=== PATIENT | female | born 1965 | race Caucasian/White ===

== ENCOUNTER 2017-05-07 11:37 | Inpatient (IN) ==
--- NOTE | 2017-05-06 21:31 | Discharge Summary ---
<Sola Sepulveda Prasanth - Last Filed: 05/06/17 21:27> Date of Encounter: 05/06/17 - Discharge Diagnosis (1) Arthritis of right hip Priority: Primary Status: Acute (2) Status post total hip replacement, right Priority: Primary Status: Acute (3) DMII (diabetes mellitus, type 2) Priority: Secondary Status: Chronic Qualifiers: Diabetes mellitus complication status: without complication Diabetes mellitus shelter insulin use: unspecified intermediate card tender insulin use status Qualified Code(s): E11.9 - Type 2 diabetes mellitus without complications (4) Obesity Priority: Secondary Status: Chronic Qualifiers: Obesity type: due to excess calories Obesity classification: unspecified obesity classification Serious obesity comorbidity presence: unspecified whether serious comorbidity present Qualified Code(s): E66.09 - Other obesity due to excess calories; Z68.41 - Body mass index (BMI) 40.0-44.9, adult; Z68.41 - Body mass index (BMI) 40.0-44.9, adult; Z68.41 - Body mass index (BMI) 40.0- 44.9, adult; Z68.41 - Body mass index (BMI) 40.0-44.9, adult - Discharge Medications Home Medications: Aspirin Enteric Coated [Aspirin EC] 325 mg PO DAILY #21 tablet.dr 05/06/17 [Rx] OxyCODONE Immed Rel [Roxicodone 5 MG] 5 mg PO Q6HR PRN #28 tablet 05/06/17 [Rx] Dulaglutide [Trulicity] 1.5 mg SQ MO 05/07/17 [History] Glimepiride [Amaryl] 4 mg PO DAILY 05/07/17 [History] Levothyroxine [Synthroid] 50 mcg PO 0630 05/07/17 [History] Metformin HCl [Metformin HCl ER] 1,500 mg PO DAILY 05/07/17 [History] Allergies/Adverse Reactions: 3 Allergy/AdvReac Type Severity Reaction Status Date / Time No Known Allergies Allergy Verified 05/07/17 13:10 Primary care physician: Lea Scott - Patient Status Disposition: Home Health Service Condition: Good - Discharge Instructions Follow Up With: Lea Scott CNP [Primary Care Provider] - 10/04/17 3:30 pm Hugo Pierre MD [Partnered Physician] - 06/06/17 5:35 pm Sola Sepulveda, PAC [Physician Building Associate] - 05/17/17 9:15 am - Hospital Course Hospital course: Ms. Noel is a 52 year old female - Time Spent with Patient Total time spent providing and/or coordinating discharge services: <IgnacioHugo - Last Filed: 05/09/17 09:12> Date of Encounter: 05/09/17 Time of Encounter: 09:11 - Discharge Diagnosis (1) Arthritis of right hip Priority: Primary Status: Chronic (2) Status post total hip replacement, right Priority: Primary Status: Acute (3) DMII (diabetes mellitus, type 2) Priority: Secondary Status: Chronic Qualifiers: Diabetes mellitus complication status: without complication Diabetes mellitus shelter insulin use: unspecified shelter insulin use status Qualified Code(s): E11.9 - Type 2 diabetes mellitus without complications (4) Obesity Priority: Secondary Status: Chronic Qualifiers: Obesity type: due to excess calories Obesity classification: adult class 3 (BMI >= 40) Serious obesity comorbidity presence: unspecified whether serious comorbidity present Body mass index: BMI 40.0-44.9 Qualified Code(s): E66.09 - Other obesity due to excess calories; Z68.41 - Body mass index (BMI) 40.0-44.9, adult; Z68.41 - Body mass index (BMI) 40.0-44.9, adult; Z68.41 - Body mass index (BMI) 40.0-44.9, adult; Z68.41 - Body mass index (BMI) 40.0-44.9 , adult Primary care physician: Lea Scott - Patient Status Functional capacity at discharge: uses cane/walker Overall status at discharge: patient is progressing back to baseline - Hospital Course Hospital course: Ms. Noel is a 52 year old female Status post right total hip replacement The patient had an uneventful postoperative course. They received antibiotics and physical therapy and were discharged in stable condition. There will follow -up in the office in 2 weeks. - Time Spent with Patient Total time spent providing and/or coordinating discharge services:
--- NOTE | 2017-05-07 12:07 | Anesthesia Evaluation PreOp ---
Date of Encounter: 05/07/17 Time of Encounter: 12:05 - Past History Planned Operation: right GEMMA Cardiac History: Denies any Significant Hx Pulmonary History: Denies Any Significant HX SCIENTIFIC INFORMATICS ANALYST History: Denies Any Significant HX Other Medical History: Diabetes Type II, Thyroid (hypo), Other (obesity) Anesthesia History: Past Anesthesia (left ankle sx, JOBY, mariusz, breast bx), Problems (PONV, will use Scop. patch) Alcohol Use: none Drug use: none Medications and Allergies Aspirin Enteric Coated [Aspirin EC] 325 mg PO DAILY #21 tablet.dr 05/06/17 [Rx] OxyCODONE Immed Rel [Roxicodone 5 MG] 5 mg PO Q6HR PRN #28 tablet 05/06/17 [Rx] 3 Allergy/AdvReac Type Severity Reaction Status Date / Time anesthesia AdvReac Nausea Uncoded 05/01/17 08:49 - Meds/Allergy Pre-op Review Medications Reviewed: Yes Allergies Reviewed: Yes Beta Blockers on Current Med List: No Anesthesia Results - Imaging EKG: report reviewed (SINUS RHYTHM LOW QRS VOLTAGE IN PRECORDIAL LEADS PATTERN CONSISTENT WITH PULMONARY DISEASE) Anesthesia Exam - HEENT Pupil (Motor): EOMI Mallampati: III Teeth: Normal Oral Opening: Greater than 3 - SCIENTIFIC INFORMATICS ANALYST LOC: Oriented SCIENTIFIC INFORMATICS ANALYST Motor: Normal RUE, Normal LUE, Normal RLE, Normal LLE, Normal Face SCIENTIFIC INFORMATICS ANALYST Sensory: Normal: RUE, LUE, RLE, LLE, Face - Cardiac Rhythm: Regular Murmur: None - Pulmonary Breath Sounds: bilateral Clear Respiratory Effort: Symmetrical Anesthesia Assess/Plan ASA Score: 3 Modified Alton Scale for Level of Consciousness: Cooperative, oriented, and tranquil Anesthetic Plan: General Monitoring Plan: Standard Monitors Recovery Plan: PACU (discussed GA with block, agrees to proceed)
[2017-05-07] MEDS ORDERED: Scopolamine Patch 1.5 MG PATCH.TD72 TD ONE (12:16)
[2017-05-07] MEDS ORDERED: Lidocaine -MPF 2% 2 ML VIAL ONE (12:23)
[2017-05-07] MEDS ORDERED: Ondansetron 4 MG/2 ML VIAL ONE (12:23)
[2017-05-07] MEDS ORDERED: *HR* Rocuronium Bromide 50 MG/5 ML VIAL ONE (12:23)
[2017-05-07] MEDS ORDERED: Ketorolac 30 MG/ML VIAL ONE (12:23)
[2017-05-07] MEDS ORDERED: *HR* Midazolam HCl 2 MG/2 ML VIAL ONE (12:24)
[2017-05-07] MEDS ORDERED: *HR* Propofol 200 MG/20 ML VIAL IVP ONE ×2 (12:24→14:39)
[2017-05-07] MEDS ORDERED: *HR* FentaNYL (PF) 100 MCG/2 ML VIAL ONE ×2 (12:24→14:20)
[2017-05-07] MEDS ORDERED: CeFAZolin Syr 2,000MG/20 ML 2,000 MG/20 ML SYRINGE IVPB ONE (12:26)
[2017-05-07] MEDS ORDERED: *HR* Succinylcholine 200 MG/10 ML VIAL IVP ONE (12:28)
[2017-05-07] MEDS: Ringers Solution, Lactated 1,000 ML IVC SCH ×3 (12:44→17:51)
--- NOTE | 2017-05-07 12:52 | History & Physical Report ---
Date of Encounter: 05/07/17 Time of Encounter: 12:52 24 Hour HP Update - Instructions Instructions: If the History and Physical is less than 30 days old and was completed prior to A.M. admission and or procedure and has NOT been updated on calendar day of procedure please complete this update prior to performing procedure. - Update Patient reports changes in Medical Condition: No Changes in examination, assessment, or condition: No Changes in Medication: No Preop tests/diagnostics Reviewed: Yes Surgery Remains Indicated: Yes Consent for Planned Operative Procedure(s) Verified: Yes - Pre-Operative Checklist Preoperative Checklist Indicated: No Prophylactic Antibiotic Ordered: Yes Is VTE Prophylaxis Indicated?: Yes
[2017-05-07] MEDS ORDERED: Bupivacaine/Clonidine Syringe 1 EACH SYRINGE ONE (13:20)
[2017-05-07] MEDS ORDERED: ROPIVACAINE HCL/PF 0.5% 30 ML VIAL ONE (13:24)
[2017-05-07] MEDS ORDERED: *HR* Midazolam HCl 5 MG/5 ML VIAL IVP ONE (13:25)
[2017-05-07] MEDS ORDERED: Ethanol\\Acetic Acid\\Na Ace\\Ben 1,000 ML IRRIG.SOLN IR ONE (13:52)
[2017-05-07] MEDS ORDERED: Ondansetron 4 MG/2 ML VIAL IVP ONE (13:55)
[2017-05-07] MEDS ORDERED: *HR* Labetalol 20 MG/4 ML SYRINGE IVP PRN (13:55)
--- NOTE | 2017-05-07 14:00 | Anesthesia Procedures ---
Date of Encounter: 05/07/17 Time of Encounter: 13:49 Procedures: Anesthesia - Nerve Block Procedure Date: 05/07/17 Time: 13:49 Surgical Procedure: right total hip Checklist: Correct Patient Identifier, Correct procedure, History checked Correct side: Right Blood Thinner: No Monitor Applied: BP, Pulse Oximetry Sedation: Versed (mg): 5 Indication: Post Op Analgesia Block Type: Other (facia iliac) Catheter placed: No Sterile Technique: Yes Ultrasound used: Yes Anatomy identified: Yes Visual spread of Local: Yes Neuro Stimulation: No Blood on Needle Aspiration: No Smooth Injection of Local: Yes Pain with Injection of Local: No Prep: Chlorhexadine Local: 0.25% Bupivicaine w/Clonidine 20 mcg/cc (40ml), Ropivacaine (30ml 0.25% rop) Volume (cc): 70 Number of Attempts: 1 Complications: None/effective block Vitals: vss, block per request of surgeon
--- NOTE | 2017-05-07 14:50 | Orthopedic Operative Note ---
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 Biomet DM Cup: 52 G7 fin cup Femoral size 11 echo full profile lateralized stem Head: -3 head with Mari Procedural Notes: Significant shortening right femur secondary to developmental dysplasia grade 4 arthritic changes femoral head acetabular socket. Operative procedure: The patient was brought to the operating room and placed on the operating room table. After general anesthesia was administered the patient was placed in the lateral decubitus position with the operative leg up. All pressure points were padded appropriately and the head was stabilized in the neutral position. The operative extremity was prepped and draped in the sterile surgical fashion patient received IV antibiotic prior to skin incision. A standard posterior approach is made to the operative hip, the incision was made through the skin and subcutaneous tissue hemostasis was obtained with Bovie cautery. Using careful sharp dissection the fascia was identified and incised exposing the external rotators. The external rotators were released off the greater trochanter and tagged with #2 FiberWire suture. The capsule was T'd open and the hip was brought into internal rotation. Patient noted to have grade 4 arthritic changes femoral head. The femoral neck cut was made at the appropriate level. An anterior capsulotomy was performed for the anterior retractor. Soft tissues removed from the acetabulum. Patient noted to have grade 4 arthritic changes acetabulum. Acetabulum was first reamed medially, and then reamed in 15 degrees of anteversion and 45 degrees off the horizontal. It was reamed up to the appropriate size 52 The appropriate-sized 52 acetabular cup was impacted in place in 15 degrees of anteversion and 45 degrees off the horizontal. This had good fit and fixation. The hip was brought back in to internal rotation and prepared with the box blank machine operator helper followed by the canal finder followed by broaching process in 20 degrees anteversion. It was broached up to the appropriate size 11 The femoral implant was impacted in place in 20 degrees of anteversion. Trial reduction found the hip to be stable with a -3 head and Mari. The trials were removed and the real implants were impacted in place. The hip was reduced, patient had apparent equal leg lengths. The hip had excellent stability with forward flexion to 90 degrees adduction of 30 degrees and internal rotation of 60 degrees. The hip had no shuck. The hips after 2 minutes with a Betadine saline solution. It was irrigated out with 2 L of pulse irrigation. The PA close the hip. Fascia was closed with a running #2 PDS suture. The deep tissue was irrigated and closed deep with #1 PDS suture superficially with 0 PDS suture and skin was closed with Dermabond and skin urszula. The patient was placed in a sterile dressing and abduction pillow. The patient was extubated and transferred to the recovery room in stable condition. Anesthesia: TONI Surgeon: Hugo Pierre Neurophysiologist: Lea Foster Condition: stable Disposition: PACU
[2017-05-07] MEDS ORDERED: Propofol 500 MG/50 ML INFUS..BTL ONE (15:14)
[2017-05-07] MEDS: *HR* HYDROmorphone (PF) 1 MG/ML SYRINGE IVP PRN ×4 (15:36→16:02)
[2017-05-07 15:49] LABS: Hematocrit 39.6 % (35.3-44.9)
[2017-05-07] MEDS ORDERED: *HR* HYDROmorphone 2 MG/ML SYRINGE ONE (15:53)
[2017-05-07 15:54] LABS: Hemoglobin 12.9 g/dL (11.5-15.4)
[2017-05-07] MEDS ORDERED: Ketorolac 30 MG/ML VIAL IVP ONE (16:10)
[2017-05-07] MEDS ORDERED: Gabapentin 300 MG CAPSULE PO STA (16:10)
[2017-05-07] MEDS ORDERED: cloNIDine HCl 0.1 MG TABLET PO ONE (16:10)
[2017-05-07] MEDS ORDERED: Acetaminophen IV 1,000 MG/100 ML INFUS..BTL IVPB ONE (16:11)
[2017-05-07] MEDS ORDERED: *HR* HYDROmorphone (PF) 1 MG/ML SYRINGE IVP PRN ×2 (16:12→16:53)
--- NOTE | 2017-05-07 16:38 | Anesthesia Evaluation Post Op ---
Date of Encounter: 05/07/17 Time of Encounter: 16:36 - Vital Signs Vital Signs: Vital Signs/O2 Sat/Glucose, Most Recent Temp Pulse Resp BP Pulse Ox 99.5 F 88 18 148/70 97 05/07/17 16:28 05/07/17 16:28 05/07/17 16:28 05/07/17 16:28 05/07/17 16:28 Blood Glucose* 117 - Lungs Lungs: Clear Ascult./Percussion - Airway Airway: Non-obstructed - Cardiovascular Regular Rate, Baseline Rhythm - Mental Status Mental Status: Asleep with brisk response to light stimulation - Pain Pain Scale: 3 Pain Scale used: Chapman-Hansel (Faces) - Nausea Vomiting Nausea Vomiting: Not Present - Hydration Hydration: Tolerates oral liquids, Has not voided Notes: 05/07/17 16:36 when asked, pt states pain 9/10. Sleeps when not disturbed. Has already received 2.5 mg dilauded, toradol, ofirmev, clonidine. Sats 98% on 2LNC. Confirmed with Dr. Barney pt is good for transfer to floor. - Discharge PostOp Status: Transfer Patient to floor
--- NOTE | 2017-05-07 16:51 | Physician Discharge Referral ---
ExtendedCare Referral Info Transfer To: [facility] Provider in Charge: Provider in Charge after Transfer: PCP Institutional Level of Care: Skilled - Diagnosis (1) Arthritis of right hip Priority: Primary Status: Chronic (2) Status post total hip replacement, right Priority: Primary Status: Acute (3) DMII (diabetes mellitus, type 2) Priority: Secondary Status: Chronic (4) Obesity Priority: Secondary Status: Chronic Expected Duration of Placement: < 30 days Prognosis: Good Aware of Diagnosis: Patient Aware of Prognosis: Patient - Transfer Medications Prescriptions: OxyCODONE Immed Rel [Roxicodone 5 MG] 5 mg PO Q6HR PRN #28 tablet PRN Reason: Pain Aspirin Enteric Coated [Aspirin EC] 325 mg PO DAILY #21 tablet. Home Medications: Aspirin Enteric Coated [Aspirin EC] 325 mg PO DAILY #21 tablet. 05/06/17 [Rx] OxyCODONE Immed Rel [Roxicodone 5 MG] 5 mg PO Q6HR PRN #28 tablet 05/06/17 [Rx] Dulaglutide [Trulicity] 1.5 mg SQ MO 05/07/17 [History] Glimepiride [Amaryl] 4 mg PO DAILY 05/07/17 [History] Levothyroxine [Synthroid] 50 mcg PO 0630 05/07/17 [History] Metformin HCl [Metformin HCl ER] 1,500 mg PO DAILY 05/07/17 [History] Allergies/Adverse Reactions: 3 Allergy/AdvReac Type Severity Reaction Status Date / Time No Known Allergies Allergy Verified 05/07/17 13:10 - Respiratory Orders None Smoking Cessation: Smoking cessation has been advised. For more information, call the [place] Tobacco Quit Line at 0-442-SROQNOW. - Ancillary Orders May use pressure relief devices daily prn, May go on JOHN w/family/respon democrat w /meds at nurse discretion PRN, May consult with Dentist, Net Making Supervisor, Revenue Analyst PRN - Mobility Orders Chair, Ambulate - Rehabiliation Orders Rehab Potential: Good Rehab Orders: ROM Exercises, Evaluation for Physical Therapy, Evaluation for Occupational Therapy - Treatments Skin tear care topically daily PRN per policy List/Other: Opsite dressing, leave intact until first post-operative visit. If dressing becomes >50% saturated, contact office, remove dressing and place appropriate dressing in its place. Do not allow for dressing to get wet. Zipline dressing in place, plan to remove at POD#14-16. PT: Total Hip Joint Precautions x 6 weeks Apply ICE/cold therapy wrap 3-6x/day for 20 minutes at a time. Encourage ambulation throughout the day and incentive spirometer 10x/hour. Elevate affected extremity above heart as tolerated. Brace: Hip Abduction immobilizer at night or when in bed x 6 weeks. - Diet Orders Regular CERTIFICATION: I certify that the transfer of the above named patient to an Extended Care Facility is necessary for the continuing treatment of the diagnosis listed. The above information is true and accurate reflection of patient's current condition. Confidential - Redisclosure prohibited without a patient's written consent.
[2017-05-07] MEDS ORDERED: *HR* Dextrose 50 % in Water (Syg) 50 ML SYRINGE IVP PRN (16:53)
[2017-05-07] MEDS ORDERED: Ondansetron 4 MG/2 ML VIAL IVP PRN (16:53)
[2017-05-07] MEDS ORDERED: Naloxone 0.4 MG/ML INJ IVP PRN (16:53)
[2017-05-07] MEDS ORDERED: ceFAZolin 2,000 MG in D5% in Water 100 ML IVPB SCH (16:53)
[2017-05-07] MEDS ORDERED: D5% in Water 1,000 ML IVC PRN (16:53)
[2017-05-07] MEDS ORDERED: Dextrose Gel 15 GM PO PRN ×2 (16:53)
[2017-05-07] MEDS ORDERED: (Dulaglutide [Trulicity] 1.5 MG) SQ SCH (16:53)
[2017-05-07] MEDS ORDERED: *HR* OxyCODONE Immed Rel 5 MG TABLET PO PRN (16:53)
[2017-05-07] MEDS: Ascorbic Acid 500 MG TABLET PO SCH (17:17)
[2017-05-07] MEDS: Insulin LISPRO 300 UNITS/3 ML VIAL SQ SCH ×3 (17:50→20:15)
[2017-05-07] MEDS: *HR* Enoxaparin 30 MG/0.3 ML SYRINGE SQ SCH ×2 (17:51→17:54)
[2017-05-07] MEDS: *HR* OxyCODONE Immed Rel 5 MG TABLET PO PRN (17:59)
[2017-05-07] MEDS ORDERED: *HR* Enoxaparin 30 MG/0.3 ML SYRINGE SQ SCH (18:00)
[2017-05-07] MEDS ORDERED: Sennosides 8.6 MG TABLET PO PRN (21:00)
[2017-05-07] MEDS ORDERED: MOM Conc 10 ML UD.LIQ PO PRN (21:00)
[2017-05-07] MEDS ORDERED: Temazepam 15 MG CAPSULE PO PRN (21:00)
[2017-05-07] MEDS: ceFAZolin 2,000 MG in Water for inj. (sterile) 20 ML IVP SCH (22:46)
[2017-05-08] MEDS: *HR* OxyCODONE Immed Rel 5 MG TABLET PO PRN ×4 (01:06→18:39)
[2017-05-08] MEDS: *HR* Enoxaparin 30 MG/0.3 ML SYRINGE SQ SCH ×2 (06:02→17:33)
[2017-05-08] MEDS: ceFAZolin 2,000 MG in Water for inj. (sterile) 20 ML IVP SCH (06:03)
[2017-05-08 06:32] LABS: Hematocrit 33.5 % (35.3-44.9); Hemoglobin 10.9 g/dL (11.5-15.4)
--- NOTE | 2017-05-08 06:44 | Orthopedics Progress Note ---
Date of Encounter: 05/08/17 Time of Encounter: 06:44 - Assessment and Plan (1) Arthritis of right hip Current Visit: No Status: Chronic (2) Status post total hip replacement, right Current Visit: No Status: Acute (3) DMII (diabetes mellitus, type 2) Current Visit: No Status: Chronic Qualifiers: Diabetes mellitus complication status: without complication Diabetes mellitus fdc insulin use: unspecified fdc insulin use status Qualified Code(s): E11.9 - Type 2 diabetes mellitus without complications (4) Obesity Current Visit: No Status: Chronic Qualifiers: Obesity type: due to excess calories Obesity classification: adult class 3 (BMI >= 40) Serious obesity comorbidity presence: unspecified whether serious comorbidity present Body mass index: BMI 40.0-44.9 Qualified Code(s): E66.09 - Other obesity due to excess calories; Z68.41 - Body mass index (BMI) 40.0-44.9, adult; Z68.41 - Body mass index (BMI) 40.0-44.9, adult; Z68.41 - Body mass index (BMI) 40.0-44.9, adult; Z68.41 - Body mass index (BMI) 40.0-44.9 , adult Subjective Interval history: Patient was seen this morning doing well without complaints. Afebrile vital signs stable. Operative extremity: Neurovascularly intact Dressing clean dry and intact Calves nontender Assessment and plan: Continue with postoperative care Hematocrit 33 Objective Vital signs: Vital Signs Temp Pulse Resp BP Pulse Ox 05/08/17 04:32 99.6 F 97 16 92/59 95 05/07/17 23:29 98.6 F 84 16 104/72 95 05/07/17 20:13 97.7 F 90 16 98/64 95 05/07/17 19:14 97.5 F L 88 18 98/56 97 05/07/17 18:02 98.2 F 79 16 119/73 93 05/07/17 17:39 97.6 F 86 12 106/71 94 05/07/17 17:07 98.3 F 83 16 112/73 97 05/07/17 16:48 99.4 F 87 14 101/62 99 05/07/17 16:38 86 14 112/55 93 05/07/17 16:28 99.5 F 88 16 148/70 97 05/07/17 16:18 89 16 135/82 98 05/07/17 16:08 80 16 128/66 98 05/07/17 15:58 98.6 F 84 14 129/60 94 05/07/17 15:48 85 16 130/69 95 05/07/17 15:38 85 14 126/67 100 05/07/17 15:28 98.5 F 86 12 102/74 96 05/07/17 13:52 101 16 102/69 98 05/07/17 13:25 91 16 127/77 100 05/07/17 12:37 98.3 F 96 18 133/73 95 05/07/17 12:04 98.3 F 96 18 133/73 95 Intake and Output 05/07/17 05/07/17 05/08/17 15:59 23:59 07:59 Intake Total 1000 / 1000 120 / 120 Output Total 200 / 200 250 / 250 0 / 0 Balance 800 / 800 -130 / -130 0 / 0 Intake: IV Fluids 1000 / 1000 120 / 120 Lactated Ringers 1,000 ML @ 25 1000 / 1000 mls/hr IVC .Q24H [facility] Rx#: [id number] Ancef 2,000 MG In Water for inj 20 / 20 . (sterile) 20 ML @ 200 mls/hr IVP Q8H [facility] Rx#:[id number] Ofirmev 1,000 mg/100 ml 1,000 100 / 100 mg In 100 ml @ 400 mls/hr IVPB ONCE ONE Rx#:[id number] Oral 0 / 0 Output: Urine 250 / 250 0 / 0 Estimated Blood Loss 200 / 200 Other: # Voids 1 1 Weight 106.141 kg 107.14 kg Blood Glucose* 117 262 Patient Weight 05/08/17 23:59 Weight 107.14 kg - Labs CBC & BMP: 05/08/17 05:51 Labs: Abnormal lab results Hgb 10.9 g/dL (11.5-15.4) L D 05/08/17 05:51 Hct 33.5 % (35.3-44.9) L 05/08/17 05:51 POC Glucose 262 (58-89) H 05/07/17 20:10 - VTE Documentation of Mechanical Device: Venous foot pump, device Consult Discharge Plan - Plan Referrals: Lea Scott, HONING MACHINE OPERATOR PRODUCTION [Primary Care Provider] -
[2017-05-08 06:46] LABS: BUN/Creatinine Ratio 22 (6-26); Blood Urea Nitrogen 14 mg/dL (7-20); Calcium 8.5 mg/dL (8.6-10.8); Carbon Dioxide 27 mEq/L (19-29); Chloride 105 mEq/L (98-109); Glucose 118 mg/dL (70-99); Osmolality,Calculated 288 (280-300); Potassium 4.1 mEq/L (3.5-4.5); Sodium 138 mEq/L (136-145); eGFR For African Americans > 60 (> 60); eGFR For Non-African Americans > 60 (> 60)
[2017-05-08] MEDS: Ringers Solution, Lactated 1,000 ML IVC SCH ×2 (06:50→20:19)
[2017-05-08] MEDS: Insulin LISPRO 300 UNITS/3 ML VIAL SQ SCH ×4 (08:21→23:22)
[2017-05-08] MEDS: *HR* Glimepiride 4 MG TABLET PO SCH (08:24)
[2017-05-08] MEDS: Multivit/Ca/Min/Fe/FA 1 TAB TABLET PO SCH (08:24)
[2017-05-08] MEDS: Ascorbic Acid 500 MG TABLET PO SCH ×2 (08:24→17:33)
[2017-05-08] MEDS: *HR* Metformin 500 MG TABLET PO SCH ×2 (08:24→20:19)
--- NOTE | 2017-05-08 14:55 | Event Note ---
Date of Encounter: 05/08/17 Time of Encounter: 14:54 PCR - Right THR05/08/17 POD#.1 Labs: Stable Patient seen at bedside. Pain control: Adequate; difficulty at time. Currently under control - can add Flexeril 10mg BID if needed* Participating in PT. All questions and concerns addressed. Educated on use of incentive spirometer, ambulation, and hydration. Patient educated on post-operative restrictions and care. Addressed: See above D/C plan: ECF once approved, continuity placed
[2017-05-09] MEDS: *HR* OxyCODONE Immed Rel 5 MG TABLET PO PRN ×5 (04:06→23:07)
[2017-05-09 04:32] LABS: Hematocrit 31.6 % (35.3-44.9); Hemoglobin 10.5 g/dL (11.5-15.4)
[2017-05-09 05:01] LABS: BUN/Creatinine Ratio 16 (6-26); Blood Urea Nitrogen 11 mg/dL (7-20); Calcium 8.6 mg/dL (8.6-10.8); Carbon Dioxide 23 mEq/L (19-29); Chloride 105 mEq/L (98-109); Glucose 141 mg/dL (70-99); Osmolality,Calculated 286 (280-300); Potassium 3.8 mEq/L (3.5-4.5); Sodium 137 mEq/L (136-145); eGFR For African Americans > 60 (> 60); eGFR For Non-African Americans > 60 (> 60)
[2017-05-09] MEDS: *HR* Enoxaparin 30 MG/0.3 ML SYRINGE SQ SCH ×2 (05:27→17:54)
[2017-05-09] MEDS: Insulin LISPRO 300 UNITS/3 ML VIAL SQ SCH ×4 (07:40→21:10)
[2017-05-09] MEDS: *HR* Glimepiride 4 MG TABLET PO SCH (07:40)
[2017-05-09] MEDS: Ascorbic Acid 500 MG TABLET PO SCH ×2 (07:40→16:16)
[2017-05-09] MEDS: Multivit/Ca/Min/Fe/FA 1 TAB TABLET PO SCH (07:41)
[2017-05-09] MEDS: *HR* Metformin 500 MG TABLET PO SCH ×2 (07:41→19:55)
--- NOTE | 2017-05-09 09:13 | Orthopedics Progress Note ---
Date of Encounter: 05/09/17 Time of Encounter: 09:12 - Assessment and Plan (1) Arthritis of right hip Current Visit: No Status: Chronic (2) Status post total hip replacement, right Current Visit: No Status: Acute (3) DMII (diabetes mellitus, type 2) Current Visit: No Status: Chronic Qualifiers: Diabetes mellitus complication status: without complication Diabetes mellitus residential insulin use: unspecified residential insulin use status Qualified Code(s): E11.9 - Type 2 diabetes mellitus without complications (4) Obesity Current Visit: No Status: Chronic Qualifiers: Obesity type: due to excess calories Obesity classification: adult class 3 (BMI >= 40) Serious obesity comorbidity presence: unspecified whether serious comorbidity present Body mass index: BMI 40.0-44.9 Qualified Code(s): E66.09 - Other obesity due to excess calories; Z68.41 - Body mass index (BMI) 40.0-44.9, adult; Z68.41 - Body mass index (BMI) 40.0-44.9, adult; Z68.41 - Body mass index (BMI) 40.0-44.9, adult; Z68.41 - Body mass index (BMI) 40.0-44.9 , adult Subjective Interval history: Patient was seen this morning doing well without complaints. Afebrile vital signs stable. Operative extremity: Neurovascularly intact Dressing clean dry and intact Calves nontender Assessment and plan: Continue with postoperative care Hematocrit 31 discharged today Objective Vital signs: Vital Signs Temp Pulse Resp BP Pulse Ox 05/09/17 07:50 95 05/09/17 06:35 98.9 F 108 18 114/78 95 05/09/17 00:25 99.9 F H 112 16 110/75 94 05/08/17 20:00 91 05/08/17 18:57 100.7 F H 103 16 127/78 91 05/08/17 15:55 99.6 F 97 15 105/71 93 05/08/17 11:27 98.8 F 97 14 102/61 93 Intake and Output 05/08/17 05/09/17 05/09/17 23:59 07:59 15:59 Intake Total 1100 / 1100 800 / 800 Balance 1100 / 1100 800 / 800 Intake: IV Fluids 1000 / 1000 Lactated Ringers 1,000 ML @ 75 1000 / 1000 mls/hr IVC .[id number] [facility] Rx#: [id number] Oral 100 / 100 800 / 800 Other: # Voids 1 2 Blood Glucose* 129 - Labs CBC & BMP: 05/09/17 04:14 05/09/17 04:14 Labs: Abnormal lab results Hgb 10.5 g/dL (11.5-15.4) L 05/09/17 04:14 Hct 31.6 % (35.3-44.9) L 05/09/17 04:14 Glucose 141 mg/dL (70-99) H 05/09/17 04:14 POC Glucose 105 (58-89) H 05/08/17 23:07 - VTE Documentation of Mechanical Device: Venous foot pump, device Consult Discharge Plan - Plan Referrals: Lea Scott CNP [Primary Care Provider] - 10/04/17 3:30 pm Hugo Pierre MD [Partnered Physician] - 06/06/17 5:35 pm Sola Sepulveda, PAC [Physician Route Sales Driver] - 05/17/17 9:15 am
[2017-05-09] MEDS: Ringers Solution, Lactated 1,000 ML IVC SCH (10:28)
--- NOTE | 2017-05-09 12:35 | Event Note ---
Date of Encounter: 05/09/17 Time of Encounter: 13:47 PCR - Right THR05/08/17 POD#2 Labs: Stable Patient seen at bedside. Pain control: Adequate; difficulty at time. Currently under control - can add Flexeril 10mg BID if needed* Patient having nausea - nursing aware. Participating in PT. All questions and concerns addressed. Educated on use of incentive spirometer, ambulation, and hydration. Patient educated on post-operative restrictions and care. Addressed: See above D/C plan: ECF once approved, continuity placed
[2017-05-10] MEDS: *HR* OxyCODONE Immed Rel 5 MG TABLET PO PRN ×2 (05:32→12:59)
[2017-05-10] MEDS: *HR* Enoxaparin 30 MG/0.3 ML SYRINGE SQ SCH (05:32)
--- NOTE | 2017-05-10 07:54 | Orthopedics Progress Note ---
Date of Encounter: 05/10/17 Time of Encounter: 08:00 - Assessment and Plan (1) Status post total hip replacement, right Current Visit: Yes Status: Acute (2) Arthritis of right hip Current Visit: Yes Status: Chronic (3) DMII (diabetes mellitus, type 2) Current Visit: Yes Status: Chronic Qualifiers: Diabetes mellitus complication status: without complication Diabetes mellitus superintendent terminal insulin use: unspecified superintendent terminal insulin use status Qualified Code(s): E11.9 - Type 2 diabetes mellitus without complications (4) Obesity Current Visit: Yes Status: Chronic Qualifiers: Obesity type: due to excess calories Obesity classification: adult class 3 (BMI >= 40) Serious obesity comorbidity presence: unspecified whether serious comorbidity present Body mass index: BMI 40.0-44.9 Qualified Code(s): E66.09 - Other obesity due to excess calories; Z68.41 - Body mass index (BMI) 40.0-44.9, adult; Z68.41 - Body mass index (BMI) 40.0-44.9, adult; Z68.41 - Body mass index (BMI) 40.0-44.9, adult; Z68.41 - Body mass index (BMI) 40.0-44.9 , adult Subjective Principal diagnosis: s/p right THR Interval history: Patient was seen this morning doing well. C/o nausea and pain in right buttock - no vomiting. Patient's spouse at bedside. Afebrile vital signs stable. Operative extremity: Neurovascularly intact Dressing intact - quarter-sized amount of serosanguinous drainage noted to posterior aspect of incision. No erythema or ecchymosis. Calves nontender Assessment and plan: Continue with postoperative care Hematocrit 31 on 05/09. Discharge order placed by Dr. Pierre 05/09. Awaiting auth from [facility] for rehab. Adding Gabapentin, Flexeril, and Lidocaine patch to help control pain and discomfort. Nausea seems to be pain related mostly - will add Zofran as patient states [place]op patch fell off yesterday. Continue with discharge if auth approved. Objective Vital signs: Vital Signs Temp Pulse Resp BP Pulse Ox 05/10/17 06:30 98 16 104/68 96 05/10/17 02:41 99.2 F 101 16 102/68 95 05/10/17 00:16 98.9 F 106 16 133/75 95 05/09/17 21:17 98.7 F 106 16 131/80 97 05/09/17 14:20 104/68 05/09/17 10:25 99.1 F 94 16 101/60 95 Intake and Output 05/09/17 05/09/17 05/10/17 15:59 23:59 07:59 Intake Total 1350 / 1350 100 / 100 300 / 300 Output Total 400 / 400 1000 / 1000 Balance 950 / 950 100 / 100 -700 / -700 Intake: IV Fluids 1000 / 1000 Lactated Ringers 1,000 ML @ 75 1000 / 1000 mls/hr IVC .[id number] THI Rx#: [id number] Oral 350 / 350 100 / 100 300 / 300 Output: Urine 400 / 400 1000 / 1000 Other: Meal Lunch Percent of Meal Consumed 50% Blood Glucose* 107 100 170 - Labs CBC & BMP: 05/09/17 04:14 05/09/17 04:14 Labs: Abnormal lab results Hgb 10.5 g/dL (11.5-15.4) L 05/09/17 04:14 Hct 31.6 % (35.3-44.9) L 05/09/17 04:14 Glucose 141 mg/dL (70-99) H 05/09/17 04:14 POC Glucose 100 (58-89) H 05/09/17 21:09 - VTE Documentation of Mechanical Device: Venous foot pump, device Consult Discharge Plan - Plan Referrals: Lea Scott CNP [Primary Care Provider] - 10/04/17 3:30 pm Hugo Pierre MD [Partnered Physician] - 06/06/17 5:35 pm Sola Sepulveda, PAC [Physician Wheel Setter] - 05/17/17 9:15 am
[2017-05-10] MEDS ORDERED: Ondansetron ODT 4 MG TAB.RAPDIS SL PRN (08:17)
[2017-05-10] MEDS: Multivit/Ca/Min/Fe/FA 1 TAB TABLET PO SCH (08:54)
[2017-05-10] MEDS: Insulin LISPRO 300 UNITS/3 ML VIAL SQ SCH ×2 (08:54→11:29)
[2017-05-10] MEDS: Ascorbic Acid 500 MG TABLET PO SCH (08:54)
[2017-05-10] MEDS: *HR* Metformin 500 MG TABLET PO SCH (08:55)
[2017-05-10] MEDS: *HR* Glimepiride 4 MG TABLET PO SCH (08:56)
[2017-05-10] MEDS ORDERED: Gabapentin 100 MG CAPSULE PO SCH (09:00)
[2017-05-10 11:26] VITALS: BP 97/63
--- NOTE | 2017-05-10 12:39 | Event Note ---
Date of Encounter: 05/10/17 Time of Encounter: 12:38 PCR - Right THR05/08/17 POD#3 Labs: Stable Patient seen at bedside. Pain control: Adequate; difficulty at time. Currently under control - can add Flexeril 10mg BID if needed* Patient having nausea - nausea improved today Participating in PT. All questions and concerns addressed. Educated on use of incentive spirometer, ambulation, and hydration. Patient educated on post-operative restrictions and care. Addressed: See above D/C plan: ECF once approved, crystal Rodríguez - awaiting Auth - D/C today or 05/11
== END 2017-05-10 17:17 | disposition home health service (06) | DRG 470 ==
LOC: SAMDAY 11:37 → 3NENU 16:50
PROVIDERS: ADMIT Orthopaedic Surgery; ATTEND Orthopaedic Surgery